=== PATIENT | female | born 1985 | race Two or more races ===

== ENCOUNTER 2017-02-16 13:02 | Inpatient (IN) | payer BC ==
[~2017-02-16] VITALS: Ht 162.6 cm; Wt 68.1 kg
[~2017-02-16 13:02] MED LIST: BIRTH CONTROL; DOCU240C31 PO; IBUP-1222 PO; ONDA4TAB7 PO; OXYC-302 PO
[2017-02-16 13:14] VITALS: BP 109/67
[2017-02-16] MEDS ORDERED: LACTATED RINGERS 1,000 ML IV SCH ×2 (14:35→19:24)
[2017-02-16] MEDS ORDERED: OXYTOCIN 30U/ 0.9% NaCL 500ML 500 ML IV ONE (14:35)
[2017-02-16] MEDS ORDERED: D5%-LACTATED RINGERS 1,000 ML IV SCH (14:35)
[2017-02-16] MEDS ORDERED: OXYTOCIN 30U/ 0.9% NaCL 500ML 500 ML IV PRN (14:35)
[2017-02-16] MEDS ORDERED: FENTANYL PF 100 MCG/2ML IVPush PRN (15:00)
[2017-02-16] MEDS ORDERED: ONDANSETRON 2MG/ML, 2ML IVPush PRN (15:00)
[2017-02-16] MEDS ORDERED: FENTANYL PF 100 MCG/2ML IV PRN (15:00)
[2017-02-16] MEDS ORDERED: METOCLOPRAMIDE 5 MG/ML, 2ML IVPush PRN (15:00)
[2017-02-16] MEDS ORDERED: OXYTOCIN 30U/ 0.9% NaCL 500ML 0 ML ONE (15:01)
[2017-02-16] MEDS ORDERED: NEWBORN KIT ONE ×2 (15:01→15:08)
[2017-02-16] MEDS ORDERED: LIDOCAINE 1%, 20ML ONE ×2 (15:01→15:08)
[2017-02-16] MEDS ORDERED: MISOPROSTOL 200 MCG TABLET ONE ×2 (15:01→15:09)
[2017-02-16 15:05] LABS: HEMATOCRIT 38.9 % (34.6-47.8); HEMOGLOBIN 13.1 g/dL (11.7-16.4); WHITE BLOOD COUNT 6.2 x10^3/uL (3.4-10)
[2017-02-16] MEDS ORDERED: OXYTOCIN 30U/ 0.9% NaCL 500ML 500 ML ONE (15:09)
[2017-02-16] MEDS ORDERED: FENTANYL/BUPIV./NS/PF 250 ML EPIDCONT SCH (19:24)
[2017-02-16] MEDS ORDERED: FENTANYL/BUPIV./NS/PF 250 ML EPIDCONT ONE ×2 (19:28→19:30)
[2017-02-16] MEDS ORDERED: BUPIVACAINE/PF 0.25% ONE (19:28)
[2017-02-16] MEDS ORDERED: LACTATED RINGERS 1,000 ML IVBOLUS PRN (19:30)
[2017-02-16] MEDS ORDERED: NALOXONE 0.4 MG/ML, 1ML IVPush PRN (19:30)
[2017-02-16] MEDS ORDERED: EPHEDRINE 50 MG/ML, 1ML IVPush PRN (19:30)
[2017-02-16] MEDS ORDERED: BUPIVACAINE 0.25% ONE (19:30)
[2017-02-17] MEDS ORDERED: IBUPROFEN 600 MG TABLET ONE (00:53)
[2017-02-17] MEDS ORDERED: HYDROcodone/APAP 5/325 TABLET ONE (00:53)
[2017-02-17] MEDS ORDERED: OXYTOCIN 30U/ 0.9% NaCL 500ML 500 ML ONE (00:53)
[2017-02-17] MEDS ORDERED: ACETAMINOPHEN 325 MG TABLET PO PRN ×2 (01:00)
[2017-02-17] MEDS ORDERED: MISOPROSTOL 200 MCG TABLET PR PRN (01:00)
[2017-02-17] MEDS ORDERED: HYDROcodone/APAP 5/325 TABLET PO PRN (01:00)
[2017-02-17] MEDS: HYDROcodone/APAP 5/325 TABLET PO PRN ×2 (01:16→23:13)
[2017-02-17] MEDS: IBUPROFEN 600 MG TABLET PO PRN ×3 (01:16→23:13)
[2017-02-17] MEDS: OXYTOCIN 30U/ 0.9% NaCL 500ML 500 ML IV SCH ×3 (01:16→20:36)
[2017-02-17 02:50] VITALS: BP 100/59
[2017-02-17 06:50] VITALS: BP 96/63
[2017-02-17] MEDS: DOCUSATE 100 MG CAPSULE PO PRN ×2 (08:41→23:14)
[2017-02-17] MEDS: PRENATAL VIT/IRON/FA 1 EACH TABLET PO SCH (08:41)
[2017-02-17 08:43] LABS: HEMOGLOBIN 11.5 g/dL (11.7-16.4); WHITE BLOOD COUNT 9.7 x10^3/uL (3.4-10)
[2017-02-17 12:25] VITALS: BP 112/78
[2017-02-17 16:52] VITALS: BP 111/72
[2017-02-17 20:25] VITALS: BP 104/65
[2017-02-18 00:40] VITALS: BP 103/66
[2017-02-18] MEDS: OXYTOCIN 30U/ 0.9% NaCL 500ML 500 ML IV SCH (06:36)
[2017-02-18 07:45] VITALS: BP 103/69
[2017-02-18] MEDS: PRENATAL VIT/IRON/FA 1 EACH TABLET PO SCH (09:00)
== END 2017-02-18 10:58 | disposition home or self-care (01) | DRG 775 ==
LOC: LDOP 13:02 → LDIP 14:37 → 2NW 02-17 02:28
PROVIDERS: ADMIT Obstetrics & Gynecology; ATTEND Obstetrics & Gynecology
PROC: 10E0XZZ Delivery of Products of Conception, External Approach (ICD-10-PCS; principal; 2017-02-17)
PROC: 0KQM0ZZ Repair Perineum Muscle, Open Approach (ICD-10-PCS; 2017-02-17)
PROC: 3E0R3BZ Introduction of Anesthetic Agent into Spinal Canal, Percutaneous Approach (ICD-10-PCS; 2017-02-17)
PROC: 00HU33Z Insertion of Infusion Device into Spinal Canal, Percutaneous Approach (ICD-10-PCS; 2017-02-17)
DX: O70.1 Second degree perineal laceration during delivery (principal); Z37.0 Single live birth; Z3A.38 38 weeks gestation of pregnancy
CPT/HCPCS: 36415; 85025; 86850; 86900; 89060; J3490; J2590; J3010; J7120; J7121; Q0114